=== PATIENT | female | born 1995 | race Two or more races ===

== ENCOUNTER 2022-12-30 14:56 | Emergency (ER) | payer OTHER ==
[~2022-12-30] VITALS: Ht 162.6 cm; Wt 66.7 kg
[2022-12-30 15:20] VITALS: BP 131/85; TEMP 98.2
--- NOTE | 2022-12-30 15:20 | NUR ---
BIBS STATING THAT SHE JUMPED INTO A SHALLOW POOL AND HIT HER HEAD LAST NIGHT DENIES HEADACHE, N/V C/O TENDERNESS -KO
--- NOTE | 2022-12-30 16:13 | NUR ---
Patient discharged to home in stable condition. Written and verbal after care instructions given. Patient verbalizes understanding of instruction.
== END 2022-12-30 16:15 | disposition home or self-care (01) ==
LOC: ER 15:00
DX: R51.9 Headache, unspecified (principal)